=== PATIENT | male | born 1950 | race Caucasian/White ===

== ENCOUNTER 2018-06-22 06:56 | Day surgery (SDC) | payer MEDICARE ==
[2018-06-20 15:39] VITALS: BMI 27.1
[2018-06-22 07:37] VITALS: RESP 18; TEMP 97.3
[2018-06-22] MEDS ORDERED: LIDOCAINE 1% 20 ML VIAL (10MG/ML) FOR IV START INTRADERMA ONE (07:43)
[2018-06-22] MEDS ORDERED: LACTATED RINGERS 1,000 ML IV ONE (07:43)
[2018-06-22] MEDS ORDERED: PROPOFOL 10 MG/ML 20 ML VIAL IV ONE (08:26)
[2018-06-22] MEDS ORDERED: LIDOCAINE 1% INJ 10MG/ML (20 ML MDV) ONE (08:26)
--- NOTE | 2018-06-22 08:54 | P.PCN ---
Date of Procedure: 06/22/18 Procedure(s) Performed: Procedure: Colonoscopy and polypectomy. Preoperative diagnosis: Screening for neoplasia, patient has history of polyps. Postoperative diagnosis: 2 small polyps snared but no large polyps or cancer. Preparation: HalfLytely prep. Sedation: Was provided by anesthesia. Brief clinical history: The patient is a 67-year-old male who is scheduled for this evaluation for screening for neoplasia. The patient has history of polyps and his last examination was in 2011. He has no abdominal complaints, bleeding or anemia. Procedure: With the patient on his left lateral decubitus position and after informed consent and adequate sedation, the perianal area was inspected and it did not show any fissures or fistulas. There were no masses felt on digital rectal examination. The Olympus CFQ 160L video colonoscope was then inserted in the rectum in the usual fashion and advanced to the cecum. The preparation was less than ideal, as there was some thick fecal secretions and fecal debris that I spent some time trying to clean and suction. There were 2 small polyps, one in the proximal right colon and one in the descending colon which I snared but there were no large polyps or cancer. The right colon polyp was not recovered by suction. I did not see any obvious diverticular disease. I retroflexed the endoscope in the rectum before the endoscope was withdrawn. The patient tolerated the procedure well. Plan: The patient was reassured. In light of his history and less than ideal preparation today and the finding of small polyps, I recommended repeat exam in 3 years before going back to a 5-year schedule. He will follow up with you as planned.
[2018-06-22 09:06] VITALS: BP 117/74; PULSE 64
== END 2018-06-22 09:30 | disposition home or self-care (01) ==
LOC: ORWHC2ENDO 06:56
DX: Z12.11 Encounter for screening for malignant neoplasm of colon (principal); D12.4 Benign neoplasm of descending colon; E78.5 Hyperlipidemia, unspecified; Z86.010 Personal history of colon polyps; Z79.899 Other long term (current) drug therapy
CPT/HCPCS: 88305; 45385; J2001; J2704

== ENCOUNTER → 2019-01-26 | Outpatient (CLI) | payer MEDICARE ==
--- NOTE | 2019-01-28 15:22 | MR ---
EXAMINATION TYPE: MR shoulder RT wo con DATE OF EXAM: 01/26/2019 COMPARISON: Outside shoulder x-rays dated 12/08/2018 HISTORY: Pain in right shoulder. Prior rotator cuff repair. TECHNIQUE: Multiplanar, multisequence imaging of the right shoulder is performed without contrast. FINDINGS: Exam is limited due to patient motion. The patient was reminded multiple times. Moving farfan alban the patient has a history of claustrophobia Rotator Cuff: There is evidence of prior rotator cuff surgery with surgical density creating suscepti bility artifact overlying the acromion. The supraspinatus demonstrates a 2 mm bursal surface tear of the posterior insertional fibers and bur eloy surface fiber fraying as well as mild tendinopathy demonstrated as increased insertional fiber si gnal. There is an articular surface tear of the infraspinatus measuring 11.5 x 6 mm. There is mild tendinop athy demonstrated as increased tendinous signal distally. The teres minor is of unremarkable signal. The subscapularis appears intact and is unremarkable. Acromioclavicular Joint: There is mild acromioclavicular arthropathy with a small downward projecting osteophyte of the distal clavicle mildly impressing upon the supraspinatus without signal alteration of the supraspinatus. Glenohumeral Joint: Mild joint space narrowing Labrum: The labrum appears grossly intact given limitation of non-arthrogram study. However there is global labral degeneration. Biceps Tendon: The long head of biceps is in normal location within bicipital groove. What appears to be a split tear of the extra-articular portion of the biceps tendon and intra-articular portion are likely artifact given the extensive patient motion. Minimal increased signal of the intra-articular p ortion of the long head of the biceps relates to mild interarticular portion tendinosis. Bone marrow signal: Small subchondral cyst is seen of the humeral head. Other: Small amount of fluid is seen in the subcoracoid bursa that appears loculated and may represen t bursitis clinically. IMPRESSION: Exam is limited by patient motion as the patient states he is claustrophobic. Repeat imag ing was performed although unsuccessful in improving patient motion artifact. 1. Partial-thickness articular surface tear of the distal infraspinatus measuring 11.5 x 6 mm superim posed upon mild tendinopathy. 2. Mild supraspinatus insertional fiber tendinopathy with bursal surface fiber fraying and 2 mm bursa l surface tear. 3. There is appearance of long head of the biceps split tear involving the intra-articular and extra articular portions is very likely attributable to motion artifact. Correlate with any clinical sympto ms localize the biceps tendon. 4. Mild interarticular portion lung on the biceps tendinosis. 5. Small amount of loculated fluid in the subcoracoid bursa may relate to bursitis.
== END | disposition home or self-care (01) ==
LOC: RADMRIMAIN 15:31
PROVIDERS: ATTEND Orthopaedic Surgery
DX: S46.011A Strain of muscle(s) and tendon(s) of the rotator cuff of right shoulder, initial encounter (principal); M75.21 Bicipital tendinitis, right shoulder

== ENCOUNTER → 2020-05-26 | Outpatient (CLI) | payer MEDICARE ==
--- NOTE | 2020-05-26 12:48 | ECHOS ---
STRESS ECHOCARDIOGRAM LUMASON: - Vial INDICATIONS: Abnormal ECG, Pre-op. MEDICATIONS: Simvestatin, Ultram, Venlafaxnine, Hydrochloride, Multivitamin BASELINE HEART RATE: 82 BASELINE BLOOD PRESSURE: 106/56 MAXIMUM HEART RATE: 134 MAXIMUM BLOOD PRESSURE: 147/80 85% MPHR: 129 100% MPHR: 132 METS: 10.1 MAXIMUM STAGE REACHED: 3 TOTAL EXERCISE TIME: 9:00 CLINICAL INFORMATION: Baseline rhythm is a sinus mechanism, right bundle branch block. Rare PVCs. Baseline blood pressure 106/56 mmHg. Patient exercised on Eric protocol for 9 minutes reaching peak rate of 134 beats per minute which is equal to 88% of maximum predicted heart rate. Peak blood pressure 147/80 mmHg. Test was terminated due to fatigue. There were no chest pain. Electrocardiograph monitoring revealed occasional PVCs. FINDINGS: Left ventricular cavity appears to be normal. Rest of the images revealed a hypokinesis of the inferoseptal wall at peak exercise, there was no new segmental wall motion abnormality. CONCLUSION: 1. Good exercise tolerance with nondiagnostic electrocardiograph stress testing. Secondary to baseline EKG abnormality. 2. Abnormal stress echocardiogram with evidence of inferior wall hypokinesis without any change during the exercise suggestive of prior myocardial infarction. There was evidence of impairment in the systolic function. There was no clear evidence of stress-induced ischemia. MMODL / IJN: [id number] /
== END | disposition home or self-care (01) ==
LOC: RADNMMAIN 09:38
PROVIDERS: ATTEND Family Medicine
DX: Z01.810 Encounter for preprocedural cardiovascular examination (principal); R94.31 Abnormal electrocardiogram [ECG] [EKG]
CPT/HCPCS: 93351

== ENCOUNTER 2020-05-30 06:09 | Day surgery (SDC) | payer MEDICARE ==
[2020-05-27 09:29] VITALS: BMI 27.6
--- NOTE | 2020-05-29 10:34 | HP ---
HISTORY AND PHYSICAL CHIEF COMPLAINT: Right shoulder pain. HISTORY OF PRESENT ILLNESS: The patient is a 69-year-old, right-hand dominant, retired gentleman who presents with progressive right shoulder pain for the past several years. He recently hurt himself trying to remove a tree stump. He notes anterior and lateral pain, particular with overhead use and at night. He has tried previous therapy and injections along with medications with only partial temporary relief. He does have a history of a right rotator cuff repair in 1995. PAST MEDICAL HISTORY: Significant for asthma, depression, and arthritis. PAST SURGICAL HISTORY: Significant for right shoulder surgery in addition to cervical spine surgery. CURRENT MEDICATIONS: Simvastatin, Ultram. He denies drug allergies. FAMILY HISTORY: Significant for heart disease and cancer. SOCIAL HISTORY: Significant for previous tobacco use. 16 POINT REVIEW OF SYSTEMS: Otherwise reviewed and is noncontributory. PHYSICAL EXAMINATION: On examination, the patient is approximately 5 foot 1, 147 pounds of mesomorphic habitus. HEENT: Exam is nonfocal. NECK: Range of motion is limited, however. Spurling's is negative. On examination of his right shoulder, he does have some anterior deltoid atrophy. He has a healed distal clavicular scar. He is tender about the anterior subacromial space. He has moderate subacromial crepitus. Active range of motion forward elevation 145 degrees external rotation with arm at side 50 degrees, internal rotation to T12. Motor strength is 4+/5 for external rotation with the arm at side, 5-/5 for abduction. Impingement test, NEER test, and Speed test are positive. His distal neurovascular exam appears intact in the right upper extremity. X-rays of the right shoulder obtained in the office show some subacromial calcification with humeral head to acromial distance maintained. MRI report right shoulder shows evidence of a partial-thickness tear of the supraspinatus and infraspinatus along with significant bicipital tendinosis. IMPRESSION: Right shoulder impingement with partial thickness rotator cuff tear/bicipital tendinosis. RECOMMENDATIONS: I talked to the patient at length regarding his condition along with treatment options. He is having persistent/recurrent symptoms despite previous conservative measures. After thorough discussion, he opts to proceed with surgery. We will plan to proceed with right shoulder arthroscopy with probable subacromial decompression, possible rotator cuff debridement versus repair, possible biceps tenotomy and distal clavicular resection. We will likely perform that as an outpatient procedure. Risks and benefits were discussed at length in layman's terms. The patient underwent preoperative medical evaluation by Dr. Jaquez. MMSHEYLAL / IJN: [id number] /
[~2020-05-30 06:09] MED LIST: DEXAMETHASONE SOD PHOSPHATE 10 MG/ML 1 ML VIAL IV ONE; HYDROmorphone 0.5 MG/0.5 ML SYRINGE IVP PRN; LACTATED RINGERS 1,000 ML IV SCH; LIDOCAINE 1% (10MG/ML) FOR IV START INTRADERMA PRN; MIDAZOLAM 2 MG/2 ML VIAL IV PRN; ONDANSETRON 4 MG/2 ML VIAL IVP ONE; fentaNYL (PF) 50 MCG/ML 2 ML AMP IVP PRN
[2020-05-30] MEDS ORDERED: LACTATED RINGERS 1,000 ML IV ONE ×2 (06:20→08:40)
[2020-05-30] MEDS ORDERED: ONDANSETRON 4 MG/2 ML VIAL ONE (06:44)
[2020-05-30] MEDS ORDERED: MIDAZOLAM 2 MG/2 ML VIAL IVP ONE (07:29)
[2020-05-30] MEDS ORDERED: fentaNYL (PF) 50 MCG/ML 2 ML AMP IVP ONE (07:29)
[2020-05-30] MEDS ORDERED: ePHEDrine SULFATE/0.9% NACL/PF 50 MG/5 ML SYRINGE IV ONE (07:55)
[2020-05-30] MEDS ORDERED: DEXAMETHASONE SOD PHOSPHATE 4 MG/ML 1 ML VIAL ONE (07:55)
[2020-05-30] MEDS ORDERED: PHENYLEPHRINE-0.9% NACL SYG 1 MG/10 ML SYRINGE ONE (07:55)
[2020-05-30] MEDS ORDERED: MIDAZOLAM 2 MG/2 ML VIAL ONE (07:55)
[2020-05-30] MEDS ORDERED: PROPOFOL 10 MG/ML 20 ML VIAL IV ONE (07:55)
[2020-05-30] MEDS ORDERED: SUCCINYLCHOLINE CHLORIDE 100 MG/5 ML SYR IV ONE (07:55)
[2020-05-30] MEDS ORDERED: fentaNYL (PF) 50 MCG/ML 2 ML AMP ONE (07:55)
[2020-05-30] MEDS ORDERED: LIDOCAINE 1% INJ 10MG/ML (20 ML MDV) ONE (07:55)
[2020-05-30] MEDS ORDERED: ROPIVACAINE 5 MG/ML 30 ML VIAL ONE (07:55)
[2020-05-30] MEDS ORDERED: EPINEPHrine (PF) 1 ML in SODIUM CHLORIDE 0.9% IRRIGATIO 3,000 ML IRRIGATION ONE ×8 (08:35)
[2020-05-30 09:38] VITALS: TEMP 96.8
--- NOTE | 2020-05-30 09:38 | P.OP ---
Date of Procedure: 05/30/20 Preoperative Diagnosis: right shoulder impingement/partial thickness rotator cuff tear/bicipital tendinosis/acromioclavicular joint arthritis Postoperative Diagnosis: same Procedure(s) Performed: Right shoulder arthroscopic subacromial decompression/distal clavicular resection/biceps tenotomy/rotator cuff repair Implants: Arthrex 5.5 mm swivel lock anchor 1 [facility] Surgeon: Ulysses Carlos Estimated Blood Loss (ml): 10 Pathology: none sent Condition: stable Disposition: PACU Indications for Procedure: The patient is a 69-year-old [id number] gentleman who presents with persistent/progressive right shoulder pain despite extensive conservative measures. A discussion of the risks and benefits of operative intervention versus continued conservative measures was made with the patient To proceed with surgery. Operative risks to include infection, neurovascular injury, development of blood clots, possible incomplete resolution of symptoms, possible postoperative stiffness and need for subsequent procedures was discussed. Informed consent was obtained. Operative Findings: As below Description of Procedure: The patient was brought to the operating room, and after induction of general anesthesia was placed in a beachchair position. A preoperative interscalene block was placed for postoperative analgesia. I examined the right shoulder. There was no gross block to passive motion or gross glenohumeral instability. The right upper extremity was prepped and draped in normal fashion. The bony outlines the acromion, distal clavicle, and coracoid process were outlined with a skin marker. The glenohumeral joint was inflated with 50 mL of saline utilizing a spinal needle from posterior approach. A posterior portal was made through a 5 mm skin incision 1 cm medial and inferior to the posterior lateral border time. A blunt trocar was used to easily into the joint. Diagnostic arthroscopy was performed. An anterior portal was made just lateral to the co racoid process entering the joint above the subscapularis tendon. The subscapularis tendon appeared to be intact. Anterior labrum was intact. The inferior recess was inspected. The posterior labrum was intact. There was a high-grade partial-thickness tear of the long head of the biceps involving interarticular portion. It was elected to proceed with release at this point. This was released from the superior labrum with electrocautery and was allowed to retract to the bicipital groove. On inspection the rotator cuff, a high- grade partial-thickness tear involving the anterior aspect the supraspinatus was noted. This was completed with a motorized shaver. A lateral portal was made 2 centimeters inferior to the anterior lateral border of the acromion. The soft tissue on the undersurface of the acromion was debrided with a motorized shaver and electrocautery clearly defining the anterior medial and lateral borders as well as the distal clavicle. An anterior inferior acromioplasty was performed with a motorized abi starting anterolateral, then extending this posteriorly, then extending this medially. I converted to a flat acromion and this was verified in the posterior and lateral viewing portals. There was significant degenerative changes involving the acromioclavicular joint with impingement and subacromial space. The distal 4 mm of the clavicle was resected with a motorized bur. The greater tuberosity was lightly decorticating with a shaver down to a bleeding bony surface. a #2 fiber tape was passed through the rotator cuff with a scorpion suture passer. A 5.5 mm swivel lock anchor was placed laterally with good purchase. . Final arthroscopic view showed adequate compression at the footprint. The arthroscope was then removed. The portals were closed with simple 3-0 nylon sutures. A sterile dressing was applied in addition ta slingatient was then awoken from general anesthesia and transferred to recovery room in good condition. Blood loss was estimated at 10 mL. No complications were incurred. Sponge and needle counts were correct in the case.
[2020-05-30 10:23] VITALS: RESP 16
[2020-05-30 10:51] VITALS: BP 120/74; PULSE 99
--- NOTE | 2020-05-30 11:10 | P.ANPRN ---
Procedure Note - Anesthesia - Nerve Block Performed Right Interscalene Time Out Performed: Yes (:) Date of Procedure: 05/30/20 Procedure Start Time: Procedure Stop Time: Location of Patient: PreOp Indication: Acute Post-Operative Pain, Requested by Surgeon (Dr Carlos) Sedation Type: Sedate with meaningful contact maintained Preparation: Sterile Prep Position: Supine Catheter: None Needle Types: Pajunk (22g) Ultrasound used to visualize needle placement: Yes Ultrasound used to observe medication spread: Yes Injectate: 0.5% Ropivacaine (see comment for volume) (20cc + Decadron 4mg) Blood Aspirated: No Pain Paresthesia on Injection Noted: No Resistance on Injection: Normal Image Stored and Saved: Yes Events: Uneventful and Well Tolerated
== END 2020-05-30 11:31 | disposition home or self-care (01) ==
LOC: OR 06:09
PROVIDERS: ATTEND Orthopaedic Surgery
DX: M75.111 Incomplete rotator cuff tear or rupture of right shoulder, not specified as traumatic (principal); M75.41 Impingement syndrome of right shoulder; M75.21 Bicipital tendinitis, right shoulder; M19.011 Primary osteoarthritis, right shoulder; M25.811 Other specified joint disorders, right shoulder; J45.909 Unspecified asthma, uncomplicated; F32.9 Major depressive disorder, single episode, unspecified; E78.5 Hyperlipidemia, unspecified; Z79.891 Long term (current) use of opiate analgesic; Z79.899 Other long term (current) drug therapy; Z87.891 Personal history of nicotine dependence; Z98.1 Arthrodesis status; Z80.9 Family history of malignant neoplasm, unspecified; Z98.890 Other specified postprocedural states; Z82.49 Family history of ischemic heart disease and other diseases of the circulatory system
CPT/HCPCS: 64415; 76942; 29824; 29826; 29827; C1713 ×2; J2250; J1100 ×2; J0690; J2405; J0171; J2001; J3010; J2795; J2370; J0330; J2704

== ENCOUNTER 2021-05-27 08:00 | Day surgery (SDC) | payer MEDICARE ==
[2021-05-22 11:56] VITALS: BMI 27.9
[~2021-05-27 08:00] MED LIST changes: -DEXAMETHASONE SOD PHOSPHATE 10 MG/ML 1 ML VIAL IV ONE; -HYDROmorphone 0.5 MG/0.5 ML SYRINGE IVP PRN; -LIDOCAINE 1% (10MG/ML) FOR IV START INTRADERMA PRN; -MIDAZOLAM 2 MG/2 ML VIAL IV PRN; -ONDANSETRON 4 MG/2 ML VIAL IVP ONE; -fentaNYL (PF) 50 MCG/ML 2 ML AMP IVP PRN
[2021-05-27 08:40] VITALS: TEMP 98.2
[2021-05-27] MEDS ORDERED: PROPOFOL 10 MG/ML 20 ML VIAL IV ONE (09:30)
[2021-05-27] MEDS ORDERED: LIDOCAINE 1% INJ 10MG/ML (20 ML MDV) ONE (09:30)
--- NOTE | 2021-05-27 09:52 | P.PCN ---
Date of Procedure: 05/27/21 Procedure(s) Performed: BRIEF HISTORY: Patient is a 70-year-old pleasant male scheduled for an elective colonoscopy as a part of evaluation of prior history of colon polyps. Last colonoscopy was 3 years ago. PROCEDURE PERFORMED: Colonoscopy snare polypectomy. PREOPERATIVE DIAGNOSIS: History of colon polyps. IV sedation per Anesthesia. PROCEDURE: After informed consent was obtained, the patient, was brought into the endoscopy unit. IV sedation was administered by Anesthesia under continuous monitoring. Digital rectal examination was normal. Initially the Olympus CF-160 flexible video colonoscope was then inserted in the rectum, gradually advanced into the cecum without any difficulty. Careful examination was performed as the scope was gradually being withdrawn. Ileocecal valve and the appendiceal orifice were visualized and appeared normal. Prep was excellent. The base of cecum there was a 3 mm polyp that was removed by snare polypectomy. In the ascending colon there was a 5 mm polyps snare polypectomy. Mucosa of the cecum, ascending colon, transverse colon, descending colon, sigmoid colon, appeared normal. The rectum there was a 2 mm and 5 mm polyps removed by snare polypectomy. Retroflexion was performed in the rectum and a 2 internal hemorrhoids were seen. The patient tolerated the procedure well. IMPRESSION: 3 Millimeters cecal polyp status post polypectomy 5 mm ascending colon polyp status post polypectomy 2 mm and 5 mm rectal polyp status post polypectomy Grade 2 internal hemorrhoids RECOMMENDATIONS: Findings of this examination were discussed with the patient less his family. He was advised to follow with the biopsy results. If the biopsy reveals adenoma he can have a repeat colonoscopy in 3-5 years.
[2021-05-27 09:59] VITALS: RESP 16
[2021-05-27 10:25] VITALS: BP 113/75; PULSE 89
== END 2021-05-27 11:09 | disposition home or self-care (01) ==
LOC: ORWHC2ENDO 08:00
PROVIDERS: ATTEND Internal Medicine Gastroenterology
DX: D12.2 Benign neoplasm of ascending colon (principal); Z86.010 Personal history of colon polyps; D12.0 Benign neoplasm of cecum; K64.1 Second degree hemorrhoids; D12.8 Benign neoplasm of rectum; E78.5 Hyperlipidemia, unspecified; Z79.899 Other long term (current) drug therapy
CPT/HCPCS: 88305; 45385; J2001; J2704

== ENCOUNTER 2022-10-04 12:06 | Inpatient (IN) | payer MEDICARE ==
--- NOTE | 2022-10-04 12:33 | ED ---
General Adult HPI - General Source: patient, RN notes reviewed Mode of arrival: ambulatory Limitations: no limitations <Shiva Mensah - Last Filed: 10/04/22 12:32> <Devon Saravia - Last Filed: 10/04/22 15:14> - General Stated complaint: sob Time Seen by Provider: 10/04/22 12:32 - History of Present Illness Initial comments: This a 72-year-old male presents emergency Department chief complaint of shortness of breath. Patient states been having increasing shortness with the last 2 weeks. Patient states this initially started with upper respiratory infection along with other family members having some her symptoms. He states that he cannot lay flat at nighttime he states that his exertional shortness of breath and tightness in his chest. Patient states that he's had no prior lung disease. Patient denies any significant leg swelling but states he gets pain, cramping in his upper legs when he walks. Patient denies prior cardiac disease does not is on simvastatin and has been on this for long period of time. (Shiva Mensah) This is a 72-year-old male who presents emergency Department complaining that he has had increasing shortness of breath the last 3 weeks he assumed since the cold that the rest of the family got but the symptoms are not resolving. Patient states he does have occasional chest pain but not that often. Patient denies any recent fever or chills. Patient states she's had no palpitations. Patient states he hasn't noticed any swelling in his legs or feet. Patient denies any abdominal pain patient's nausea vomiting. Patient states she's had no prior heart disease. Patient states she does have high cholesterol smokes marijuana but does not smoke cigarettes. (Devon Saravia) - Related Data Home Medications Medication Instructions Recorded Confirmed Simvastatin [Zocor] 20 mg PO W/SUPPER 06/20/18 05/27/21 Venlafaxine HCl [Effexor XR] 150 mg PO HS 05/27/20 05/27/21 Acetaminophen [Tylenol Arthritis] 650 mg PO DIRECTED PRN 05/22/21 05/27/21 Multivit-Min/Folic/Vit K/Lycop 1 each PO DAILY 05/22/21 05/27/21 [Men's Multivitamin Tablet] traMADol HCl [Ultram] 50 mg PO Q6HR PRN 05/22/21 05/27/21 Allergies Allergy/AdvReac Type Severity Reaction Status Date / Time No Known Allergies Allergy Verified 10/04/22 12:44 Review of Systems ROS Other: All systems not noted in ROS Statement are negative. <Shiva Mensah - Last Filed: 10/04/22 12:32> ROS Other: All systems not noted in ROS Statement are negative. <Devon Saravia - Last Filed: 10/04/22 15:14> ROS Statement: Those systems with pertinent positive or pertinent negative responses have been documented in the HPI. Past Medical History Past Medical History: Hyperlipidemia, Osteoarthritis (OA) Additional Past Medical History / Comment(s): hx colon polyps, Arthritis and back & neck pain. History of Any Multi-Drug Resistant Organisms: MRSA Date of last positivie culture/infection: 2005 MDRO Source:: CERVICAL INCISION Past Surgical History: Back Surgery Additional Past Surgical History / Comment(s): HX OF CERVICAL FUSION X2, repair ruptured ear drum, colonoscopy Past Anesthesia/Blood Transfusion Reactions: No Reported Reaction Past Psychological History: Anxiety, Depression Smoking Status: Former smoker Past Alcohol Use History: None Reported Additional Past Alcohol Use History / Comment(s): quit smoking 1988, hx-2 cigarettes/day Past Drug Use History: Marijuana Additional Drug Use History / Comment(s): STATES USES MEDICAL MARIJUANA DAILY, INSTRUCTED TO HOLD 24HRS PRIOR TO PROCEDURE - Past Family History Mother Family Medical History: No Reported History Father Family Medical History: Cancer, Congestive Heart Failure (CHF), Myocardial Infarction ([place]) Additional Family Medical History / Comment(s): leukemia Brother(s) Family Medical History: Cancer, Myocardial Infarction ([place]) Additional Family Medical History / Comment(s): nose cancer. <Shiva Mensah - Last Filed: 10/04/22 12:32> General Exam <Devon Saravia - Last Filed: 10/04/22 15:14> - General Exam Comments Initial Comments: GENERAL: Patient is well-developed and well-nourished. Patient is nontoxic and well- hydrated and is in mild distress. ENT: Neck is soft and supple. No significant lymphadenopathy is noted. Oropharynx is clear. Moist mucous membranes. Neck has full range of motion without eliciting any pain. EYES: The sclera were anicteric and conjunctiva were pink and moist. Extraocular movements were intact and pupils were equal round and reactive to light. Eyelids were unremarkable. PULMONARY: Patient is crackles bilateral bases CARDIOVASCULAR: There is a regular rate and rhythm without any murmurs gallops or rubs. ABDOMEN: Soft and nontender with normal bowel sounds. SKIN: Skin is clear with no lesions or rashes and otherwise unremarkable. NEUROLOGIC: Patient is alert and oriented x3. Cranial nerves II through XII are grossly intact. Motor and sensory are also intact. Normal speech, volume and content. Symmetrical smile. MUSCULOSKELETAL: Normal extremities with adequate strength and full range of motion. Scant edema LYMPHATICS: No significant lymphadenopathy is noted PSYCHIATRIC: Normal psychiatric evaluation. (Devon Saravia) Course Vital Signs 10/04/22 12:43 Temperature 98.4 F Pulse Rate 100 Respiratory 22 Rate Blood Pressure 128/87 O2 Sat by Pulse 94 L Oximetry Medical Decision Making - Lab Data Result diagrams: 10/04/22 12:46 10/04/22 12:46 <Devon Saravia - Last Filed: 10/04/22 15:14> - Medical Decision Making EKG was interpreted by me. EKG shows sinus tachycardia at 101 bpm MS interval 120 QRS is on a 52 QT interval 38 QTC is 446. Patient's EKG shows right bundle branch block. There is no ST segment elevation. Was pt. sent in by a medical professional or institution? @ -None Did you speak to anyone other than the patient for history? @ - gave some patient's current history that he had forgotten Did you review nursing and triage notes? @ -Agree with the triage notes and nursing notes Were old charts reviewed? @ -I reviewed previous EKGs on this patient compared to the current one. Differential Diagnosis? @ -Differential Dyspnea: Coronary syndrome, arrhythmia, tamponade, asthma, COPD, pulmonary embolism, pneumonia, pneumothorax, pulmonary effusion, anaphylaxis, diabetic ketoacidosis, flailed chest, pulmonary contusion, diaphragmatic rupture, anemia, neuromuscular, this is not meant to be an all-inclusive list. EKG interpreted by me (3pts min.)? @ -As above X-rays interpreted by me (1pt min.)? @ -Chest x-ray was interpreted by myself. X-ray shows pulmonary edema and cardiomegaly and pleural effusions. CT interpreted by me (1pt min.)? @ -None U/S interpreted by me (1pt. min.)? @ -None What testing was considered but not performed? (CT, X-rays, U/S, labs)? Why? @ -None What meds were considered but not given? Why? @ -None Did you discuss the management of the patient with other professionals? @ -I spoke with some physicians agreed to admit the patient admitted the sofia edmonds wrote admitting orders. I consult cardiology Did you reconcile home meds? @ -None Was smoking cessation discussed for >3mins.? @ -None Was critical care preformed (if so, how long)? @ -None Were there social determinants of health that impacted care today? How? (Homelessness, low income, unemployed, alcoholism, drug addiction, transportation, low edu. Level, literacy, decrease access to med. care, care home, rehab)? @ -None Was there de-escalation of care discussed even if they declined? (Discuss DNR or withdrawal of care, Hospice)? @ -No What co-morbidities impacted this encounter? (DM, HTN, Smoking, COPD, CAD, Cancer, CVA, Hep., AIDS, mental health diagnosis, sleep apnea, morbid obesity)? @ -High cholesterol worsens the patient's coronary artery disease potentially Was patient admitted / discharged? @ -Patient will be admitted. Patient came in short of breath patient states one was mildly elevated BNP was elevated chest x-ray showed pulmonary edema. Patient was given aspirin and heparin Nitropaste as well as Lasix. I spoke with some physicians and he agreed to admit the patient admitted the patient wrote admitting orders I consult cardiology Undiagnosed new problem with uncertain prognosis? @ -None Drug Therapy requiring intensive monitoring for toxicity (Heparin, Nitro, Insulin, Cardizem)? @ -Patient was placed on heparin and will be monitored. Were any procedures done? @ -No Diagnosis/symptom? @ -Acute pulmonary edema, elevated troponin Acute, or Chronic, or Acute on Chronic? @ -Acute Uncomplicated (without systemic symptoms) or Complicated (systemic symptoms)? @ -Complicated Side effects of treatment? @ -None Exacerbation, Progression, or Severe Exacerbation] @ -Severe exacerbation Poses a threat to life or bodily function? @ -Pulmonary edema is causing dyspnea which and affect could cause and organ dysfunction Diagnosis/symptom? @ -Elevated troponin Acute, or Chronic, or Acute on Chronic? @ -Acute Uncomplicated (without systemic symptoms) or Complicated (systemic symptoms)? @ -Complicated Side effects of treatment? @ -None Exacerbation, Progression, or Severe Exacerbation] @ -None Poses a threat to life or bodily function? @ -Yes this could represent the patient hasn't had a heart attack in the distant past or in the recent past (Devon Saravia) - Lab Data Lab Results 10/04/22 10/04/22 10/04/22 Range/Units 12:46 12:46 12:46 WBC 5.0 (3.8-10.6) k/uL RBC 3.22 L (4.30-5.90) m/uL Hgb 9.8 L (13.0-17.5) gm/dL Hct 29.2 L (39.0-53.0) % MCV 90.7 (80.0-100.0) fL MCH 30.3 (25.0-35.0) pg MCHC 33.4 (31.0-37.0) g/dL RDW 13.4 (11.5-15.5) % Plt Count 130 L (150-450) k/uL MPV 9.2 Neutrophils % 67 % Lymphocytes % 22 % Monocytes % 3 % Eosinophils % 6 % Basophils % 0 % Neutrophils # 3.4 (1.3-7.7) k/uL Lymphocytes # 1.1 (1.0-4.8) k/uL Monocytes # 0.2 (0-1.0) k/uL Eosinophils # 0.3 (0-0.7) k/uL Basophils # 0.0 (0-0.2) k/uL Hypochromasia Slight PT 10.9 (9.0-12.0) sec INR 1.0 (<1.2) APTT 22.0 (22.0-30.0) sec Sodium 142 (137-145) mmol/L Potassium 4.0 (3.5-5.1) mmol/L Chloride 109 H (98-107) mmol/L Carbon Dioxide 26 (22-30) mmol/L Anion Gap 7 mmol/L BUN 18 (9-20) mg/dL Creatinine 1.06 (0.66-1.25) mg/dL Est GFR (CKD-EPI)AfAm 82 (>60 ml/min/1.73 sqM) Est GFR (CKD-EPI)NonAf 71 (>60 ml/min/1.73 sqM) Glucose 97 (74-99) mg/dL Calcium 9.3 (8.4-10.2) mg/dL Magnesium 1.8 (1.6-2.3) mg/dL Total Bilirubin 0.6 (0.2-1.3) mg/dL AST 39 (17-59) U/L ALT 38 (4-49) U/L Alkaline Phosphatase 94 (38-126) U/L Creatine Kinase 202 H (55-170) U/L Troponin I (0.000-0.034) ng/mL NT-Pro-B Natriuret Pep pg/mL Total Protein 6.9 (6.3-8.2) g/dL Albumin 4.0 (3.5-5.0) g/dL Influenza Type A (PCR) (Not Detectd) Influenza Type B (PCR) (Not Detectd) RSV (PCR) (Not Detectd) SARS-CoV-2 (PCR) (Not Detectd) 10/04/22 10/04/22 10/04/22 Range/Units 12:46 12:46 12:46 WBC (3.8-10.6) k/uL RBC (4.30-5.90) m/uL Hgb (13.0-17.5) gm/dL Hct (39.0-53.0) % MCV (80.0-100.0) fL MCH (25.0-35.0) pg MCHC (31.0-37.0) g/dL RDW (11.5-15.5) % Plt Count (150-450) k/uL MPV Neutrophils % % Lymphocytes % % Monocytes % % Eosinophils % % Basophils % % Neutrophils # (1.3-7.7) k/uL Lymphocytes # (1.0-4.8) k/uL Monocytes # (0-1.0) k/uL Eosinophils # (0-0.7) k/uL Basophils # (0-0.2) k/uL Hypochromasia PT (9.0-12.0) sec INR (<1.2) APTT (22.0-30.0) sec Sodium (137-145) mmol/L Potassium (3.5-5.1) mmol/L Chloride (98-107) mmol/L Carbon Dioxide (22-30) mmol/L Anion Gap mmol/L BUN (9-20) mg/dL Creatinine (0.66-1.25) mg/dL Est GFR (CKD-EPI)AfAm (>60 ml/min/1.73 sqM) Est GFR (CKD-EPI)NonAf (>60 ml/min/1.73 sqM) Glucose (74-99) mg/dL Calcium (8.4-10.2) mg/dL Magnesium (1.6-2.3) mg/dL Total Bilirubin (0.2-1.3) mg/dL AST (17-59) U/L ALT (4-49) U/L Alkaline Phosphatase (38-126) U/L Creatine Kinase (55-170) U/L Troponin I 0.041 H* (0.000-0.034) ng/mL NT-Pro-B Natriuret Pep 6560 pg/mL Total Protein (6.3-8.2) g/dL Albumin (3.5-5.0) g/dL Influenza Type A (PCR) Not Detected (Not Detectd) Influenza Type B (PCR) Not Detected (Not Detectd) RSV (PCR) Not Detected (Not Detectd) SARS-CoV-2 (PCR) Not Detected (Not Detectd) Critical Care Time Critical Care Time: Yes Total Critical Care Time: 35 <Devon Saravia - Last Filed: 10/04/22 15:14> Disposition <Shiva Mensah - Last Filed: 10/04/22 12:32> Time of Disposition: 15:14 <Devon Saravia - Last Filed: 10/04/22 15:14> Clinical Impression: Acute pulmonary edema, Elevated troponin Disposition: ADMITTED IP TO THIS HOSP Referrals: Ivon Carlton MD [Primary Care Provider] - 1-2 days
[2022-10-04 13:29] LABS: Basophils % (A) 0 %; Eosinophils # (A) 0.3 k/uL (0-0.7); Eosinophils % (A) 6 %; HCT 29.2 % (39.0-53.0); HGB 9.8 gm/dL (13.0-17.5); Hypochromasia Slight; Lymphocytes # (A) 1.1 k/uL (1.0-4.8); Lymphocytes % (A) 22 %; MCH 30.3 pg (25.0-35.0); MCHC 33.4 g/dL (31.0-37.0); MCV 90.7 fL (80.0-100.0); Mean Platelet Volume 9.2; Monocytes # (A) 0.2 k/uL (0-1.0); Monocytes % (A) 3 %; Neutrophils # (A) 3.4 k/uL (1.3-7.7); Neutrophils % (A) 67 %; Platelet Count 130 k/uL (150-450); RBC 3.22 m/uL (4.30-5.90); RDW 13.4 % (11.5-15.5)
[2022-10-04 13:40] LABS: Calcium 9.3 mg/dL (8.4-10.2); Magnesium 1.8 mg/dL (1.6-2.3); Total Bilirubin 0.6 mg/dL (0.2-1.3); Total Protein 6.9 g/dL (6.3-8.2)
[2022-10-04 13:46] LABS: Prothrombin Time 10.9 sec (9.0-12.0)
--- NOTE | 2022-10-04 13:47 | XR ---
EXAMINATION TYPE: XR chest 2V DATE OF EXAM: 10/04/2022 COMPARISON: 05/22/2020 HISTORY: 72-year-old male shortness of breath, difficulty breathing TECHNIQUE: PA and lateral views FINDINGS: Heart mildly enlarged. Diffuse interstitial and vascular density. There are trace bilateral pleural e ffusions and mild patchy bibasilar opacities. IMPRESSION: CHF with pulmonary vascular congestion. Trace pleural effusions with adjacent atelectasis and/or cons olidation.
[2022-10-04] MEDS ORDERED: ASPIRIN 81 MG PO STA (14:50)
[2022-10-04] MEDS ORDERED: FUROSEMIDE 10 MG/ML 4 ML VIAL IV STA (14:50)
[2022-10-04] MEDS ORDERED: NITROGLYCERIN OINT 1 INCH/GM PACKET TOPICAL STA (14:50)
[2022-10-04] MEDS ORDERED: HEPARIN SODIUM 1,000 UN/ML (10ML VL) IV ONE (15:17)
[2022-10-04] MEDS: HEPARIN SOD,PORK IN 0.45% NACL 25,000 UNIT in 0.45% NACL 1 250ML.BAG IV SCH (15:29)
--- NOTE | 2022-10-04 15:34 | P.HPIM ---
History of Present Illness H&P Date: 10/04/22 Chief Complaint: sob 72-year-old male presents emergency Department chief complaint of shortness of breath over the last 2 weeks. Other family members had similar symptoms. He has been having progressively worsening exertional shortness of breath, cannot walk long distances without getting short winded. Denied exertional chest pain. However has been having a cough productive of yellow phlegm with associated pleuritic chest pain. He states that he cannot lay flat at nighttime due to difficulty in breathing. Patient states that he's had no prior lung or heart disease. He is usually very active. No leg swelling. Patient denies any recent fever or chills. Patient states she's had no palpitations or dizziness. Patient denies any abdominal pain patient's nausea vomiting. Of note he smokes marijuana regularly but no cigarettes. Evaluation in the emergency department revealed normal vital signs. Labs were significant for hemoglobin 9.8, troponin 0.041, BNP 6560. Specific labs okay. Chest x-ray showed congestive heart failure changes with pulmonary vascular congestion and tiny pleural effusion. Patient was admitted for further evaluation and management. Review of Systems Complete review of system performed, pertinent positives per HPI, otherwise negative Past Medical History Past Medical History: Hyperlipidemia, Osteoarthritis (OA) Additional Past Medical History / Comment(s): hx colon polyps, Arthritis and back & neck pain. History of Any Multi-Drug Resistant Organisms: MRSA Date of last positivie culture/infection: 2005 MDRO Source:: CERVICAL INCISION Past Surgical History: Back Surgery Additional Past Surgical History / Comment(s): HX OF CERVICAL FUSION X2, repair ruptured ear drum, colonoscopy Past Anesthesia/Blood Transfusion Reactions: No Reported Reaction Past Psychological History: Anxiety, Depression Smoking Status: Former smoker Past Alcohol Use History: None Reported Past Drug Use History: Marijuana - Past Family History Mother Family Medical History: No Reported History Father Family Medical History: Cancer, Congestive Heart Failure (CHF), Myocardial Infarction ([place]) Additional Family Medical History / Comment(s): leukemia Brother(s) Family Medical History: Cancer, Myocardial Infarction ([place]) Additional Family Medical History / Comment(s): nose cancer. Medications and Allergies Home Medications Medication Instructions Recorded Confirmed Type Simvastatin [Zocor] 20 mg PO W/SUPPER 06/20/18 05/27/21 History Venlafaxine HCl [Effexor XR] 150 mg PO HS 05/27/20 05/27/21 History Acetaminophen [Tylenol Arthritis] 650 mg PO DIRECTED PRN 05/22/21 05/27/21 History Multivit-Min/Folic/Vit K/Lycop 1 each PO DAILY 05/22/21 05/27/21 History [Men's Multivitamin Tablet] traMADol HCl [Ultram] 50 mg PO Q6HR PRN 05/22/21 05/27/21 History Allergies Allergy/AdvReac Type Severity Reaction Status Date / Time No Known Allergies Allergy Verified 10/04/22 12:44 Physical Exam Vitals: Vital Signs Temp Pulse Resp BP Pulse Ox 10/04/22 12:43 98.4 F 100 22 128/87 94 L Intake and Output 10/04/22 10/04/22 10/04/22 06:59 14:59 22:59 Other: Weight 67.132 kg Constitutional: No acute distress, conversant, pleasant Eyes:Anicteric sclerae, moist conjunctiva, no lid-lag, PERRLA, ENMT: Oropharynx clear, no erythema, exudates Neck: Supple, FROM, no masses, or JVD, No carotid bruits, No thyromegaly Lungs: Basilar crackles, Clear to percussion, Normal respiratory effort, no accessory muscle use Cardiovascular: Heart regular in rate and rhythm, No murmurs, gallops, or rubs, No peripheral edema Abdominal: Soft, Nontender, no guarding, rebound or rigidity, Normoactive bowel sounds, No hepatomegaly, No splenomegaly, No palpable mass Skin: Normal temperature, tone, texture, turgor, no induration, No subcutaneous nodules, No rash, lesions, No ulcers Extremities: No digital cyanosis, No clubbing, Pedal pulses intact and symmetrical, Radial pulses intact and symmetrical, No calf tenderness Psychiatric: Alert and oriented to person, place and time, appropriate affect, intact judgement Neuro: Muscles Strength 5/5 in all 4 extremities, Sensation to light touch grossly present throughout, Cranial nerves II-XII grossly intact, no focal sensory deficits Results CBC & Chem 7: 10/04/22 12:46 10/04/22 12:46 Labs: Abnormal Lab Results - Last 24 Hours (Table) 10/04/22 10/04/22 10/04/22 Range/Units 12:46 12:46 12:46 RBC 3.22 L (4.30-5.90) m/uL Hgb 9.8 L (13.0-17.5) gm/dL Hct 29.2 L (39.0-53.0) % Plt Count 130 L (150-450) k/uL Chloride 109 H (98-107) mmol/L Creatine Kinase 202 H (55-170) U/L Troponin I 0.041 H* (0.000-0.034) ng/mL Assessment and Plan Plan: Shortness of breath NSTEMI Monitor on telemetry Cycle troponins Consult cardiology Heparin drip Aspirin and beta blockers Lasix IV and monitor I's and O's and daily weights. Check echocardiogram Community-acquired pneumonia Check blood cultures Empiric antibiotics Hyperkalemia Continue statin Admit to inpatient, expected length of stay >2 midnights
[2022-10-04] MEDS ORDERED: ACETAMINOPHEN TAB 325 MG TAB PO PRN (15:35)
[2022-10-04] MEDS ORDERED: NALOXONE 0.4 MG/ML 1 ML VIAL IV PRN (15:35)
[2022-10-04] MEDS: ATORVASTATIN 10 MG TAB PO SCH (18:10)
[2022-10-05 08:15] LABS: Basophils # (A) 0.1 k/uL (0-0.2); Basophils % (A) 1 %; Eosinophils # (A) 0.5 k/uL (0-0.7); Eosinophils % (A) 5 %; HCT 34.4 % (39.0-53.0); HGB 11.6 gm/dL (13.0-17.5); Hypochromasia Slight; Lymphocytes # (A) 1.9 k/uL (1.0-4.8); Lymphocytes % (A) 19 %; MCH 30.4 pg (25.0-35.0); MCHC 33.9 g/dL (31.0-37.0); MCV 89.8 fL (80.0-100.0); Mean Platelet Volume 8.1; Monocytes # (A) 0.3 k/uL (0-1.0); Monocytes % (A) 3 %; Neutrophils # (A) 7.1 k/uL (1.3-7.7); Neutrophils % (A) 70 %; RBC 3.83 m/uL (4.30-5.90); RDW 13.8 % (11.5-15.5); WBC 10.2 k/uL (3.8-10.6)
[2022-10-05 08:17] LABS: Platelet Count 327 k/uL (150-450)
[2022-10-05 08:53] LABS: Albumin 3.7 g/dL (3.5-5.0); Calcium 8.8 mg/dL (8.4-10.2); Magnesium 1.8 mg/dL (1.6-2.3); Phosphorus 3.6 mg/dL (2.5-4.5); Potassium 3.6 mmol/L (3.5-5.1); Total Bilirubin 0.7 mg/dL (0.2-1.3); Total Protein 6.3 g/dL (6.3-8.2)
[2022-10-05] MEDS ORDERED: FUROSEMIDE 10 MG/ML 2 ML VIAL IV SCH (09:00)
[2022-10-05] MEDS: LOSARTAN 25 MG TAB PO SCH (12:38)
[2022-10-05] MEDS: carvediloL 3.125 MG TAB PO SCH ×2 (12:38→16:36)
[2022-10-05] MEDS ORDERED: HEPARIN SODIUM 1,000 UN/ML (10ML VL) IVP ONE (14:13)
[2022-10-05] MEDS: HEPARIN SOD,PORK IN 0.45% NACL 25,000 UNIT in 0.45% NACL 1 250ML.BAG IV SCH ×2 (14:20→19:30)
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
--- NOTE | 2022-10-05 15:16 | P.PN ---
Subjective Progress Note Date: 10/05/22 Patient seen and examined at bedside. Shortness of breath and chest pain have improved. Awaiting further recommendations from cardiology at this time. Objective - Vital Signs Vital signs: Vital Signs Temp 97.4 F L 10/05/22 08:00 Pulse 116 H 10/05/22 12:00 Resp 16 10/05/22 12:00 BP 115/67 10/05/22 12:00 Pulse Ox 97 10/05/22 12:00 FiO2 Intake & Output 10/04/22 10/05/22 10/05/22 18:59 06:59 18:59 Intake Total 69.819 313.295 Output Total 1825 850 Balance -1755.181 -536.705 Weight 67.132 kg 65.6 kg Intake: Intake, IV Titration 69.819 133.295 Amount Heparin Sod,Pork in 0.45% 69.819 133.295 NaCl 25,000 unit In 0.45 % NaCl 1 250ml.bag @ 12 UNITS/KG/HR 8.056 mls/hr IV .Q24H [facility] Rx#: [id number] Oral 180 Output: Urine 1825 850 Other: Voiding Method Urinal Urinal # Voids 1 - Exam General: [non toxic], [no distress], [appears at stated age] Derm: [warm], [dry] Head: [atraumatic], [normocephalic], [symmetric] Eyes: [EOMI], [no lid lag], [anicteric sclera] Mouth: [no lip lesion], [mucus membranes moist] Cardiovascular: [S1S2 reg], [no murmur], [positive posterior tibial pulse bilateral], Lungs: [CTA bilateral], [no rhonchi, no rales] , [no accessory muscle use] Abdominal: [soft], [ nontender to palpation], [no guarding], [no appreciable organomegaly] Ext: [no gross muscle atrophy], [no edema], [no contractures] Neuro: [ CN II-XI grossly intact], [no focal neuro deficits] Psych: [Alert], [oriented], [appropriate affect] - Labs CBC & Chem 7: 10/05/22 07:22 10/05/22 07:22 Labs: Abnormal Lab Results - Last 24 Hours (Table) 10/04/22 10/04/22 10/04/22 Range/Units 16:16 19:02 22:35 RBC (4.30-5.90) m/uL Hgb (13.0-17.5) gm/dL Hct (39.0-53.0) % APTT 38.7 H (22.0-30.0) sec Glucose (74-99) mg/dL Troponin I 0.044 H* 0.041 H* (0.000-0.034) ng/mL 10/05/22 10/05/22 10/05/22 Range/Units 07:22 07:22 12:49 RBC 3.83 L (4.30-5.90) m/uL Hgb 11.6 L (13.0-17.5) gm/dL Hct 34.4 L (39.0-53.0) % APTT 35.6 H (22.0-30.0) sec Glucose 101 H (74-99) mg/dL Troponin I (0.000-0.034) ng/mL Assessment and Plan Assessment: -Shortness of breath likely due to NSTEMI IV Lasix transitioned to oral Lasix by cardiology Patient started on losartan 25 daily and Coreg 3.125 mg twice daily 2-D echocardiogram ordered Cardiology recommendations appreciated continue IV heparin -Hyperlipidemia Continue statin -Normocytic anemia improving Check iron studies -Admit to inpatient, expected length of stay >2 midnights Time with Patient: Greater than 30
[2022-10-05 16:11] LABS: % Iron Saturation 13.82 (15.00-50.00)
[2022-10-05] MEDS: ATORVASTATIN 10 MG TAB PO SCH (16:36)
[2022-10-05] MEDS: FUROSEMIDE 40 MG TAB PO SCH (16:36)
[2022-10-06] MEDS: carvediloL 3.125 MG TAB PO SCH ×2 (06:09→17:04)
[2022-10-06] MEDS: FUROSEMIDE 40 MG TAB PO SCH (09:03)
--- NOTE | 2022-10-06 09:47 | CA ---
Transthoracic Echo Report Name: Chase Olguin Age: 72 Gender: M : 1950 Exam Date: 10/05/2022 14:33 Exam Location: [facility] Ht (in): 62 Wt (lb): 144 Ordering Physician: Griselda Cole Attending/Referring Phys: [id number], Douglas Waxer Natacha Hair RDCS Procedure CPT: Indications: LVF Cardiac Hx: Technical Quality: Contrast 1: Total Dose (mL): Contrast 2: Total Dose (mL): MEASUREMENTS (Male / Female) Normal Values 2D ECHO LV Diastolic Diameter PLAX 7.0 cm 4.2 - 5.9 / 3.9 - 5.3 cm LV Systolic Diameter PLAX 5.3 cm IVS Diastolic Thickness 0.8 cm 0.6 - 1.0 / 0.6 - 0.9 cm LVPW Diastolic Thickness 1.2 cm 0.6 - 1.0 / 0.6 - 0.9 cm LV Relative Wall Thickness 0.3 RV Internal Dim ED PLAX 4.3 cm LA Systolic Diameter LX 4.5 cm 3.0 - 4.0 / 2.7 - 3.8 cm LV Diastolic Volume MOD BP 123.6 cm??? 67 - 155 / 56 - 104 cm??? LV Systolic Volume MOD BP 107.0 cm??? 22 - 58 / 19 - 49 cm??? LV Ejection Fraction MOD BP 13.5 % >= 55 % LV Diastolic Volume MOD 4C 83.8 cm??? LV Systolic Volume MOD 4C 93.3 cm??? LV Ejection Fraction MOD 4C -11.4 % LV Diastolic Length 4C 6.7 cm LV Systolic Length 4C 6.8 cm LV Diastolic Volume MOD 2C 153.4 cm??? LV Systolic Volume MOD 2C 117.7 cm??? LV Ejection Fraction MOD 2C 23.3 % LV Diastolic Length 2C 8.1 cm LV Systolic Length 2C 7.1 cm LA Volume 71.8 cm??? 18 - 58 / 22 - 52 cm??? M-MODE Aortic Root Diameter MM 3.2 cm LA Systolic Diameter MM 4.5 cm LA Ao Ratio MM 1.4 MV E Point Septal Separation 2.0 cm AV Cusp Separation MM 1.9 cm DOPPLER TR Peak Velocity 249.6 cm/s TR Peak Gradient 24.9 mmHg Right Ventricular Systolic Press 29.9 mmHg FINDINGS Left Ventricle Moderately increased left ventricular diastolic diameter. Severely increased left ventricular systolic volume. Severely decreased left ventricular ejection fraction. Right Ventricle Normal right ventricular size and function. Right ventricular systolic pressure within normal limits. Right Atrium Normal right atrial size. Left Atrium Mildly increased left atrial diameter. Moderately increased left atrial volume. Mildly increased left atrial area. Mitral Valve Structurally normal mitral valve. Aortic Valve Trileaflet aortic valve. Aortic valve sclerosis. Tricuspid Valve Structurally normal tricuspid valve. Mild tricuspid regurgitation. Pulmonic Valve Structurally normal pulmonic valve. Pericardium Normal pericardium. Aorta Normal size aortic root and proximal ascending aorta. CONCLUSIONS Left ventricular ejection fraction 20% Moderately dilated left ventricle RVSP 29 Mild to moderately dilated left atrium Mild tricuspid regurgitation No pericardial effusion Previewed by: Dr. Kimani Burris DO (Electronically Signed) Final Date: 06 October 2022 09:47
[2022-10-06] MEDS ORDERED: ATORVASTATIN 80 MG TAB PO STA (10:18)
[2022-10-06] MEDS ORDERED: ALPRAZolam 0.25 MG TAB PO PRN (10:18)
[2022-10-06] MEDS ORDERED: NITROGLYCERIN SL TABS 0.4 MG TAB SUBLINGUAL PRN (10:18)
[2022-10-06] MEDS ORDERED: ASPIRIN 325 MG TAB PO STA (10:18)
[2022-10-06] MEDS ORDERED: ALPRAZolam 0.5 MG TAB PO PRN (10:18)
[2022-10-06] MEDS ORDERED: VERAPAMIL 2.5 MG/ML 2 ML AMP ONE (10:36)
[2022-10-06 10:52] LABS: Calcium 8.9 mg/dL (8.4-10.2); Magnesium 1.8 mg/dL (1.6-2.3); Potassium 3.7 mmol/L (3.5-5.1)
[2022-10-06] MEDS ORDERED: fentaNYL (PF) 50 MCG/ML 2 ML AMP ONE (11:04)
[2022-10-06] MEDS ORDERED: SODIUM CHLORIDE 0.9% 500 ML 500 ML IV ONE (11:05)
[2022-10-06] MEDS ORDERED: fentaNYL (PF) 50 MCG/ML 2 ML AMP IV ONE (11:20)
[2022-10-06] MEDS ORDERED: MIDAZOLAM 2 MG/2 ML VIAL IV ONE (11:20)
[2022-10-06] MEDS ORDERED: LIDOCAINE 1% INJ 10MG/ML (5 ML VIAL-PF) SQ ONE (11:22)
[2022-10-06] MEDS ORDERED: VERAPAMIL SYRINGE (5 MG/10 ML) INTRAARTER ONE (11:24)
[2022-10-06] MEDS ORDERED: HEPARIN SODIUM 1,000 UN/ML (10ML VL) IV ONE (11:24)
[2022-10-06] MEDS ORDERED: IOPAMIDOL-370 125ML BTL INJ ONE (11:36)
--- NOTE | 2022-10-06 11:46 | P.CARDCATH ---
Description of Procedure: PROCEDURES PERFORMED: Left heart catheterization, bilateral coronary angiography INDICATION: Non-STEMI, cardiomyopathy CONSENT:I have discussed the risks, benefits and alternative therapies for the above-mentioned procedure and for both sedation/analgesia as well as necessary blood product administration, if indicated, as they pertain to this patient. The patient has indicated understanding and acceptance of the risks and procedures discussed. PROCEDURE: After the risks, benefits and alternatives of the above mentioned procedure explained in detail with the patient, informed consent was obtained. Patient was taken to the catheterization lab and prepped and draped in usual fashion. 1% lidocaine was used to anesthetize the right radial artery. A 6- Yi sheath was placed in the right radial artery using modified Seldinger technique. Left coronary angiography was performed with a 5-Yi JL 3.5 catheter and right coronary angiography was performed with a 6-Yi AR2 catheter in various views. A 5-Yi FR5 catheter was inserted into the left ventricle and pressure measurements were obtained. The right radial sheath was removed and a TR band was placed with hemostasis achieved. The patient tolerated the procedure well. Patient was transported back to the post catheterization holding area in stable condition. Conscious Sedation: Patient was monitored under the direct supervision of vision of myself for conscious sedation using Versed and fentanyl for a total duration of 18 minutes HEMODYNAMICS: Aorta: 118/72 LV: 112/3, LVEDP 8 SELECTIVE CORONARY ARTERIOGRAPHY: LEFT MAIN: The left main is a large caliber vessel which bifurcates into the LAD and circumflex. There is no significant stenosis. LEFT ANTERIOR DESCENDING CORONARY ARTERY: LAD is a large caliber vessel which wraps around to the apex. There is a long tubular proximal LAD 40-50% stenosis and otherwise mild luminal irregularities. LEFT CIRCUMFLEX CORONARY ARTERY: Left circumflex is a moderate caliber vessel with mild luminal irregularities RIGHT CORONARY ARTERY: The right coronary artery is a large caliber vessel which gives off a PDA and PLV branch and is the dominant vessel. There are mild luminal irregularities. FINAL IMPRESSION: 1. CAD as described above including proximal LAD 40-50% stenosis and otherwise mild luminal irregularities of the circumflex and RCA 2. Normal left sided filling pressures PLAN: 1. Aggressive risk factor modification per most recent ACC/AHA guidelines. 2. Continue heart failure regimen.
[2022-10-06] MEDS: LOSARTAN 25 MG TAB PO SCH (12:04)
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
--- NOTE | 2022-10-06 14:17 | P.PN ---
Subjective Progress Note Date: 10/06/22 Patient seen and examined at bedside. Patient denied chest pain or shortness of breath at time of exam. Patient continues to be on heparin drip. Patient was awaiting cardiac cath. Objective - Vital Signs Vital signs: Vital Signs Temp 97.9 F 10/05/22 19:38 Pulse 85 10/06/22 08:00 Resp 16 10/06/22 08:00 BP 125/77 10/06/22 08:00 Pulse Ox 98 10/06/22 08:00 FiO2 Intake & Output 10/05/22 10/06/22 10/06/22 18:59 06:59 18:59 Intake Total 493.295 48.556 100 Output Total 850 600 Balance -356.705 -551.444 100 Weight 63.9 kg Intake: IV 100 Intake, IV Titration 133.295 48.556 Amount Heparin Sod,Pork in 0.45% 133.295 48.556 NaCl 25,000 unit In 0.45 % NaCl 1 250ml.bag @ 12 UNITS/KG/HR 8.056 mls/hr IV .Q24H [facility] Rx#: [id number] Oral 360 Output: Urine 850 600 Other: Voiding Method Urinal Urinal Urinal - Exam General: [non toxic], [no distress], [appears at stated age] Derm: [warm], [dry] Head: [atraumatic], [normocephalic], [symmetric] Eyes: [EOMI], [no lid lag], [anicteric sclera] Mouth: [no lip lesion], [mucus membranes moist] Cardiovascular: [S1S2 reg], [no murmur], [positive posterior tibial pulse bilateral], Lungs: [CTA bilateral], [no rhonchi, no rales] , [no accessory muscle use] Abdominal: [soft], [ nontender to palpation], [no guarding], [no appreciable organomegaly] Ext: [no gross muscle atrophy], [no edema], [no contractures] Neuro: [ CN II-XI grossly intact], [no focal neuro deficits] Psych: [Alert], [oriented], [appropriate affect] - Labs CBC & Chem 7: 10/05/22 07:22 10/06/22 08:48 Labs: Abnormal Lab Results - Last 24 Hours (Table) 10/05/22 10/05/22 10/05/22 Range/Units 07:22 11:31 21:19 APTT 43.6 H (22.0-30.0) sec Glucose (74-99) mg/dL Hemoglobin A1c 6.3 H (0.0-6.0) % Iron 48 L (65-175) ug/dL % Saturation 13.82 L (15.00-50.00) 10/06/22 10/06/22 Range/Units 08:48 08:48 APTT 50.7 H (22.0-30.0) sec Glucose 110 H (74-99) mg/dL Hemoglobin A1c (0.0-6.0) % Iron (65-175) ug/dL % Saturation (15.00-50.00) Microbiology - Last 24 Hours (Table) 10/04/22 19:02 Blood Culture - Preliminary Blood No Growth after 24 hours 10/04/22 16:16 Blood Culture - Preliminary Blood No Growth after 24 hours Assessment and Plan Assessment: -NSTEMI Patient is status post cardiac cath. Impression: CAD as described with proximal LAD 40-50% stenosis and mild luminal irregularities of the circumflex and RCA. 2-D echocardiogram revealed ejection fraction of 20%. Moderately dilated left ventricle. Aggressive risk factor modification advised Continue heart failure regimen Continue oral Lasix Patient started on losartan 25 daily and Coreg 3.125 mg twice daily Cardiology recommendations -Shortness of breath due to systolic heart failure 2-D echocardiogram revealed ejection fraction of 20%. Moderately dilated left ventricle. Continue heart failure regimen -Hyperlipidemia Continue statin -Normocytic anemia improving Check iron studies -Admit to inpatient, expected length of stay >2 midnights Disposition: Home in a.m.
--- NOTE | 2022-10-06 14:58 | CDI ---
Documentation Clarification Form Date: 10/06/2022 2:04:16 PM From: Hellen Magallanes RN, CCDS Email: [email or web address] Admit Date: 10/04/2022 3:35:00 PM Patient Name: Chase Olguin Visit Number: [id number] Discharge Date: ATTENTION: The Clinical Documentation Specialists (CDI) and [facility] Coding Staff appreciate your assistance in clarifying documentation. Please respond to the clarification below the line at the bottom and electronically sign. The CDI & [facility] Coding staff will review the response and follow-up if needed. Please note: Queries are made part of the Legal Health Record. If you have any questions, please contact the author of this message via ITS. Dr. Taz Gr Your patient has the documented diagnosis of unspecified heart failure in your 10/05 Consult note. Additional information regarding the type and acuity of CHF is requested. History/Risk Factors: hyperlipidemia, osteoarthritis, depression. Patient came in due to SOB for 3 weeks. Complains of lower extremity edema. Clinical Indicators: 10/04 H&P: "Chest x-ray showed congestive heart failure changes with pulmonary vascular congestion and tiny pleural effusion." 10/05 Consult: "Dyspnea on exertion, suspect heart failure" 10/04 BNP: 6560 10/05 EF Echocardiogram 10/04 Chest X Ray: CHF with pulmonary vascular congestion. Trace pleural effusions with adjacent atelectasis and/or consolidation. Treatment: IV Lasix 40mg x1 on 10/04; IV Lasix 20mg on 10/05; Lasix 40mg po BID; Lasix 40mg po daily; Coreg 3.125mg po BID In your professional opinion, can you please clarify the acuity and type of CHF if known? [ x ] Acute Systolic Heart Failure (reduced EF) Acute systolic heart failure MTDD
[2022-10-06 16:13] LABS: Chol/HDL Ratio 3.33 Ratio; LDL Cholesterol,Calculated 88.6 mg/dL (0.0-131.0)
[2022-10-06] MEDS: ATORVASTATIN 10 MG TAB PO SCH (17:00)
[2022-10-06] MEDS: FERROUS SULFATE 325 MG TAB PO SCH (17:04)
[2022-10-07] MEDS: carvediloL 3.125 MG TAB PO SCH (05:59)
[2022-10-07] MEDS: FERROUS SULFATE 325 MG TAB PO SCH ×2 (05:59→16:33)
[2022-10-07] MEDS: ASPIRIN 81 MG PO SCH (08:59)
[2022-10-07] MEDS: FUROSEMIDE 40 MG TAB PO SCH (08:59)
[2022-10-07 09:02] LABS: Basophils % (A) 1 %; Eosinophils # (A) 0.6 k/uL (0-0.7); Eosinophils % (A) 6 %; HCT 36.3 % (39.0-53.0); HGB 11.9 gm/dL (13.0-17.5); Hypochromasia Slight; Lymphocytes % (A) 24 %; MCHC 32.8 g/dL (31.0-37.0); MCV 91.2 fL (80.0-100.0); Mean Platelet Volume 7.7; Monocytes # (A) 0.4 k/uL (0-1.0); Monocytes % (A) 5 %; Neutrophils # (A) 5.5 k/uL (1.3-7.7); Neutrophils % (A) 63 %; Platelet Count 365 k/uL (150-450); RBC 3.98 m/uL (4.30-5.90); RDW 13.5 % (11.5-15.5); WBC 8.7 k/uL (3.8-10.6)
[2022-10-07 09:33] LABS: Albumin 3.8 g/dL (3.5-5.0); Calcium 8.5 mg/dL (8.4-10.2); Magnesium 1.9 mg/dL (1.6-2.3); Total Bilirubin 0.5 mg/dL (0.2-1.3); Total Protein 6.6 g/dL (6.3-8.2)
[2022-10-07] MEDS ORDERED: carvediloL 3.125 MG TAB PO STA (10:44)
[2022-10-07] MEDS: LOSARTAN 25 MG TAB PO SCH (13:02)
[2022-10-07 13:03] LABS: Parvovirus B-19 IgG Antibodies 3.43 INDEX (<=0.90); Parvovirus B-19 IgM Antibodies 0.09 INDEX (<=0.90)
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
--- NOTE | 2022-10-07 15:31 | P.PN ---
Subjective Patient seen and examined at bedside. Family in the room at time of interview. Patient is very eager to go home. However medications need to be adjusted by cardiology. Discharge planning held until tomorrow morning. Patient denies chest pain shortness of breath. Patient feels much better. Objective - Vital Signs Vital signs: Vital Signs Temp 97.9 F 10/07/22 11:15 Pulse 94 10/07/22 11:15 Resp 16 10/07/22 11:15 BP 110/76 10/07/22 11:15 Pulse Ox 96 10/07/22 11:15 FiO2 Intake & Output 10/06/22 10/07/22 10/07/22 18:59 06:59 18:59 Intake Total 280 240 688 Output Total 500 Balance 280 -260 688 Intake: IV 100 Oral 180 240 688 Output: Urine 500 Other: Voiding Method Urinal Urinal Urinal # Voids 1 - Exam General: [non toxic], [no distress], [appears at stated age] Derm: [warm], [dry] Head: [atraumatic], [normocephalic], [symmetric] Eyes: [EOMI], [no lid lag], [anicteric sclera] Mouth: [no lip lesion], [mucus membranes moist] Cardiovascular: [S1S2 reg], [no murmur], [positive posterior tibial pulse bilateral], Lungs: [CTA bilateral], [no rhonchi, no rales] , [no accessory muscle use] Abdominal: [soft], [ nontender to palpation], [no guarding], [no appreciable organomegaly] Ext: [no gross muscle atrophy], [no edema], [no contractures] Neuro: [ CN II-XI grossly intact], [no focal neuro deficits] Psych: [Alert], [oriented], [appropriate affect]. - Labs CBC & Chem 7: 10/07/22 08:16 10/07/22 08:16 Labs: Abnormal Lab Results - Last 24 Hours (Table) 10/05/22 10/07/22 10/07/22 Range/Units 11:31 08:16 08:16 RBC 3.98 L (4.30-5.90) m/uL Hgb 11.9 L (13.0-17.5) gm/dL Hct 36.3 L (39.0-53.0) % BUN 21 H (9-20) mg/dL Glucose 164 H (74-99) mg/dL AST 63 H (17-59) U/L ALT 50 H (4-49) U/L Parvovirus B19 IgG Ab 3.43 H (<=0.90) INDEX Microbiology - Last 24 Hours (Table) 10/04/22 19:02 Blood Culture - Preliminary Blood No Growth after 48 hours 10/04/22 16:16 Blood Culture - Preliminary Blood No Growth after 48 hours Assessment and Plan Assessment: -NSTEMI Patient is status post cardiac cath. on 10/06/2022 Impression: CAD as described with proximal LAD 40-50% stenosis and mild luminal irregularities of the circumflex and RCA. 2-D echocardiogram revealed ejection fraction of 20%. Moderately dilated left ventricle. Aggressive risk factor modification advised Continue heart failure regimen Continue oral Lasix Patient started on losartan and Coreg Cardiology recommendations -Shortness of breath due to systolic heart failure 2-D echocardiogram revealed ejection fraction of 20%. Moderately dilated left ventricle. Continue heart failure regimen -Hyperlipidemia Continue statin -Normocytic anemia improving Check iron studies -Admit to inpatient, expected length of stay >2 midnights Disposition: Home in a.m. due to medication adjustments
[2022-10-07] MEDS: ATORVASTATIN 10 MG TAB PO SCH (16:33)
[2022-10-07] MEDS: carvediloL 6.25 MG TAB PO SCH (16:33)
[2022-10-08 04:46] VITALS: RESP 16
[2022-10-08] MEDS: FERROUS SULFATE 325 MG TAB PO SCH (06:15)
[2022-10-08] MEDS: carvediloL 6.25 MG TAB PO SCH (06:15)
[2022-10-08] MEDS: FUROSEMIDE 40 MG TAB PO SCH (08:01)
[2022-10-08] MEDS: ASPIRIN 81 MG PO SCH (08:01)
[2022-10-08 11:22] VITALS: BP 119/74; PULSE 86; TEMP 97.8
[2022-10-08] MEDS: LOSARTAN 25 MG TAB PO SCH (12:00)
--- NOTE | 2022-10-08 13:47 | P.DS ---
Providers Date of admission: 10/04/22 15:35 Expected date of discharge: 10/08/22 Attending physician: Migue Polanco MD Consults: 10/04/22 15:35 Consult Physician Routine Consulting Provider: Yoni Vickers Consult Reason/Comments: mi Do you want consulting provider notified?: Yes Primary care physician: [facility] Course: Admitting diagnoses: Chest pain Shortness of breath Discharge diagnoses: NSTEMI Systolic heart failure Hyperlipidemia Hypertension Normocytic anemia Hospital course: 72-year-old male presents emergency Department chief complaint of shortness of breath over the last 2 weeks. Other family members had similar symptoms. He has been having progressively worsening exertional shortness of breath, cannot walk long distances without getting short winded. Denied exertional chest pain. However has been having a cough productive of yellow phlegm with associated pleuritic chest pain. He states that he cannot lay flat at nighttime due to difficulty in breathing. Patient states that he's had no prior lung or heart disease. He is usually very active. No leg swelling. Patient denies any recent fever or chills. Patient states she's had no palpitations or dizziness. Patient denies any abdominal pain patient's nausea vomiting. Of note he smokes marijuana regularly but no cigarettes. Evaluation in the emergency department revealed normal vital signs. Labs were significant for hemoglobin 9.8, troponin 0.041, BNP 6560. Specific labs okay. Chest x-ray showed congestive heart failure changes with pulmonary vascular congestion and tiny pleural effusion. Patient was admitted for further evaluation and management. Physical General:[no distress], [appears at stated age] Derm: [warm], [dry] Head: [atraumatic], [normocephalic], [symmetric] Eyes: [EOMI], [no lid lag], [anicteric sclera] Mouth: [no lip lesion], [mucus membranes moist] Cardiovascular: [S1S2 reg], [no murmur], [positive posterior tibial pulse bilateral], Lungs: [CTA bilateral], [no rhonchi, no rales] , [no accessory muscle use] Abdominal: [soft], [ nontender to palpation], [no guarding], [no appreciable organomegaly] Ext: [no gross muscle atrophy], [no edema], [no contractures] Neuro: [ CN II-XI grossly intact], [no focal neuro deficits] Psych: [Alert], [oriented], [appropriate affect] Assessment and plan -NSTEMI Patient is status post cardiac cath. on 10/06/2022 Impression: CAD as described with proximal LAD 40-50% stenosis and mild luminal irregularities of the circumflex and RCA. 2-D echocardiogram revealed ejection fraction of 20%. Moderately dilated left ventricle. Aggressive risk factor modification advised Continue heart failure regimen Continue oral Lasix Patient started on losartan and Coreg Cardiology followed -Shortness of breath due to systolic heart failure 2-D echocardiogram revealed ejection fraction of 20%. Moderately dilated left ventricle. Continue heart failure regimen -Hyperlipidemia Continue statin -Normocytic anemia improving Check iron studies Disposition: Home Activity: As tolerated Diet: Healthy heart Condition: Fair Follow-up with PCP in 2-7 days Follow-up with cardiology in 1-2 weeks Patient Condition at Discharge: Fair Plan - Discharge Summary Discharge Rx Participant: Yes New Discharge Prescriptions: New Ferrous Sulfate [Iron (65 MG Elemental)] 325 mg PO BID-W/MEALS #60 tab Furosemide [Lasix] 20 mg PO DAILY #30 tab Atorvastatin [Lipitor] 20 mg PO HS #30 tablet Aspirin 81 mg PO DAILY #30 tab carvediloL [Coreg] 6.25 mg PO BID-W/MEALS #60 tab Losartan [Cozaar] 25 mg PO 1300 #30 tab Continue Venlafaxine HCl [Effexor XR] 150 mg PO HS Acetaminophen [Tylenol Arthritis] 650 mg PO DAILY traMADol HCl [Ultram] 50 mg PO QID Multivit-Min/Folic/Vit K/Lycop [Men's Multivitamin Tablet] 1 tab PO DAILY Discontinued Simvastatin [Zocor] 20 mg PO HS Discharge Medication List Venlafaxine HCl [Effexor XR] 150 mg PO HS 05/27/20 [History] Acetaminophen [Tylenol Arthritis] 650 mg PO DAILY 05/22/21 [History] Multivit-Min/Folic/Vit K/Lycop [Men's Multivitamin Tablet] 1 tab PO DAILY 05/22/21 [History] traMADol HCl [Ultram] 50 mg PO QID 05/22/21 [History] Aspirin 81 mg PO DAILY #30 tab 10/07/22 [Rx] Ferrous Sulfate [Iron (65 MG Elemental)] 325 mg PO BID-W/MEALS #60 tab 10/07/22 [Rx] Losartan [Cozaar] 25 mg PO 1300 #30 tab 10/07/22 [Rx] carvediloL [Coreg] 6.25 mg PO BID-W/MEALS #60 tab 10/07/22 [Rx] Atorvastatin [Lipitor] 20 mg PO HS #30 tablet 10/08/22 [Rx] Furosemide [Lasix] 20 mg PO DAILY #30 tab 10/08/22 [Rx] Follow up Appointment(s)/Referral(s): Taz Gr MD [STAFF PHYSICIAN] - 1 Week Ivon Carlton MD [Primary Care Provider] - 1-2 days Patient Instructions/Handouts: Heart Failure (ER) Discharge Disposition: HOME SELF-CARE
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
[2022-10-09] MEDS ORDERED: FUROSEMIDE 20 MG TAB PO SCH (09:00)
== END 2022-10-08 14:39 | disposition home or self-care (01) | DRG 280 ==
LOC: EC 12:06 → 3SCARD 15:35
PROVIDERS: ADMIT Internal Medicine; ATTEND Internal Medicine
PROC: B2111ZZ Fluoroscopy of Multiple Coronary Arteries using Low Osmolar Contrast (ICD-10-PCS; principal; 2022-10-06 09:00)
PROC: B2151ZZ Fluoroscopy of Left Heart using Low Osmolar Contrast (ICD-10-PCS; principal; 2022-10-06 09:00)
PROC: 4A023N7 Measurement of Cardiac Sampling and Pressure, Left Heart, Percutaneous Approach (ICD-10-PCS; principal; 2022-10-06 09:00)
DX: I21.4 Non-ST elevation (NSTEMI) myocardial infarction (principal); I50.21 Acute systolic (congestive) heart failure; I42.8 Other cardiomyopathies; I45.10 Unspecified right bundle-branch block; I11.0 Hypertensive heart disease with heart failure; B33.24 Viral cardiomyopathy; Z20.822 Contact with and (suspected) exposure to COVID-19; I25.10 Atherosclerotic heart disease of native coronary artery without angina pectoris; F32.A Depression, unspecified; D64.9 Anemia, unspecified; F41.9 Anxiety disorder, unspecified; I07.1 Rheumatic tricuspid insufficiency; E78.00 Pure hypercholesterolemia, unspecified; M54.2 Cervicalgia; M19.90 Unspecified osteoarthritis, unspecified site; Z87.891 Personal history of nicotine dependence; Z79.899 Other long term (current) drug therapy; Z86.14 Personal history of Methicillin resistant Staphylococcus aureus infection; Z98.1 Arthrodesis status; Z82.49 Family history of ischemic heart disease and other diseases of the circulatory system
CPT/HCPCS: 36415; 71046; 80048; 80053; 80061; 82550; 82607; 82746; 83036; 83540; 83550; 83605; 83735; 83880; 84100; 84145; 84443; 84484; 85025; 85610; 85730; 86658; 86747; 87040; 87636; 93005; 93306; 93458; 96365; 96366; 96375; 99291

== ENCOUNTER → 2023-01-17 | Outpatient (CLI) | payer MEDICARE | END | disposition home or self-care (01) | LOC: LABWHC1 08:17 | PROVIDERS: ATTEND Internal Medicine Clinical Cardiac Electrophysiology | DX: I51.4 Myocarditis, unspecified (principal) | CPT/HCPCS: 36415; 86658 ==

== ENCOUNTER → 2023-01-27 | Outpatient (CLI) | payer MEDICARE ==
[2023-01-27 20:30] LABS: African American GFR (CKD) 62.5 (60.0-200.0); BUN/Creat Ratio 22.27 Ratio (12.00-20.00); Blood Urea Nitrogen 29.4 mg/dL (9.0-27.0); Calcium 9.8 mg/dL (8.7-10.3); Carbon Dioxide 26.3 mmol/L (20.0-27.5); Magnesium 2.2 mg/dL (1.5-2.4); Non-African American GFR(CKD) 53.9 (60.0-200.0); Potassium 5.5 mmol/L (3.5-5.5)
== END | disposition home or self-care (01) ==
LOC: LABWHC1 10:12
PROVIDERS: ATTEND Internal Medicine Clinical Cardiac Electrophysiology
DX: I25.10 Atherosclerotic heart disease of native coronary artery without angina pectoris (principal)
CPT/HCPCS: 36415; 80048; 83735

== ENCOUNTER → 2023-06-07 | Outpatient (CLI) | payer MEDICARE | END | disposition home or self-care (01) | LOC: LABPAT 15:13 | PROVIDERS: ATTEND Internal Medicine Clinical Cardiac Electrophysiology | DX: Z53.9 Procedure and treatment not carried out, unspecified reason (principal) ==

== ENCOUNTER 2023-06-14 14:59 | Day surgery (SDC) | payer MEDICARE, OTHER ==
[2023-06-13 09:27] VITALS: BMI 26.5
[~2023-06-14 14:59] MED LIST changes: -LACTATED RINGERS 1,000 ML IV SCH; +SODIUM CHLORIDE 0.9% 1,000 ML IV SCH; +ceFAZolin 1 GM in SODIUM CHLORIDE 0.9% IRRIG BTL 250 ML IRRIGATION PRN
[2023-06-14] MEDS ORDERED: LIDOCAINE 1% INJ 10MG/ML (20 ML MDV) ONE ×2 (17:02→17:51)
[2023-06-14] MEDS ORDERED: IOPAMIDOL-370 100ML BTL INJ ONE (17:24)
[2023-06-14] MEDS ORDERED: LIDOCAINE 1% INJ 10MG/ML (20 ML MDV) SQ ONE ×3 (17:43→18:05)
[2023-06-14] MEDS ORDERED: HYDROcodone/APAP 5-325MG 1 EACH TAB PO PRN (18:33)
[2023-06-14] MEDS ORDERED: ACETAMINOPHEN IV (For NPO) 1,000 MG in EMPTY BAG 1 BAG IVPB ONE (18:33)
[2023-06-14] MEDS ORDERED: ACETAMINOPHEN TAB 325 MG TAB PO PRN (18:33)
--- NOTE | 2023-06-14 18:42 | P.EPPROC ---
- EP Procedure Note Electrophysiology Procedure Note: Diagnosis Cardiomyopathy, chronic, nonischemic Congestive heart failure, systolic, class III On guideline directed medical treatment guideline directed No improvement in LV systolic function over the last 7 months. Severe LV dysfunction Right bundle branch block pattern twelve-lead EKG Procedure: Single ICD implantation for management of risk of sudden cardiac Keyboarding Clerk: Dr. Gr Result: Single chamber ICD implantation, RV ICD lead: [employer] Pacing threshold 0.5 V at 0.5 ms. R waves 10.6 mV. Pacing impedance 960 ohms High-voltage impedance 72 ohms ICD generator: [place] [employer], [employer] Procedure details: Patient was brought to the EP lab in a fasting state. Written informed consent was obtained prior to the procedure. Options, pros and cons, benefits and risks and complications discussed with patient in detail prior to the procedure (shared decision making document, from [facility]). Importance of continuing medical treatment emphasized. Alternatives discussed. Patient would like to proceed with ICD implant. Left upper extremity venogram performed. 15 mL IV dye injected in the left arm. Patent axillary/subclavian vein The left pectoral area was prepped and draped as a protocol. IV antibiotics administered 1% lidocaine was used for local anesthesia. A 4 cm incision was made parallel to the deltopectoral groove, about 1.5 cm medial to it. The incision was carried down to the level of the pectoralis muscle and the subfascial pocket was made. Hemostasis was assured. The axillary vein access was obtained. Appropriately sized venous sheath was placed. ICD lead implanted in the right ventricle and screwed in. ICD lead tested for threshold, sensing, impedances and tested with high output pacing for diaphragmatic stimulation Lead secured to the underlying transverse muscle after removing sheaths . Pocket irrigated with antibiotic solution Leads connected to the ICD generator. Wound closed in 3 layers and dressed per protocol ICD was interrogated and programmed. Appropriate pacing parameters, antitachycardia therapies with antitachycardia pacing cardioversion defibrillations programmed. Patient tolerated the procedure well without any acute complications. See scanned device report in EMR for lead details Defibrillation level testing Ventricular atrial fibrillation was induced and detected at least sensitivity. No dropouts Charge time 1.9 seconds Shocking impedance 72 ohms Successful defibrillation with 10 J shock, anodal polarity
--- NOTE | 2023-06-14 18:44 | P.PRLE ---
RE: Chase Olguin Dear Ivonceleste Stone underwent a single-chamber ICD implantation for primary prevention of sudden cardiac He has predominantly nonischemic cardio myopathy with severe LV dysfunction He will continue his cardiac medications and will follow-up with you as previously scheduled We will see him again next week in the device clinic Thank you for entrusting me with the care of the patient Warm regards Sincerely Taz Gr
[2023-06-14] MEDS ORDERED: ATORVASTATIN 20 MG TAB PO SCH (21:00)
[2023-06-14] MEDS ORDERED: VENLAFAXINE HCL ER 150 MG CAP PO SCH (21:00)
[2023-06-14 21:07] VITALS: RESP 16
[2023-06-14] MEDS: traMADol 50 MG TAB PO SCH (22:23)
[2023-06-15] MEDS ORDERED: carvediloL 6.25 MG TAB PO SCH (07:30)
--- NOTE | 2023-06-15 07:35 | XR ---
EXAMINATION TYPE: XR chest 2V DATE OF EXAM: 06/15/2023 COMPARISON: 10/04/2022 INDICATION: Lead placement check TECHNIQUE: Frontal and lateral views of the chest are obtained. FINDINGS: The heart size is normal. Pacemaker overlies the left chest. Single lead directed into the region of the ventricle. The pulmonary vasculature is normal. The lungs are clear. IMPRESSION: 1. No acute pulmonary process. 2. No pneumothorax post left pacemaker placement, single lead directed towards the ventricular region .
[2023-06-15] MEDS ORDERED: FUROSEMIDE 20 MG TAB PO SCH (09:00)
[2023-06-15] MEDS ORDERED: ASPIRIN 81 MG PO SCH (09:00)
[2023-06-15 09:17] VITALS: BP 123/79; PULSE 86; TEMP 98
[2023-06-15] MEDS: traMADol 50 MG TAB PO SCH (10:38)
[2023-06-15] MEDS ORDERED: LOSARTAN 25 MG TAB PO SCH (13:00)
== END 2023-06-15 11:10 | disposition home or self-care (01) ==
LOC: CATHEP 14:59 → 6NMEDSUR 18:27 → CATHEP 06-15 11:10
PROVIDERS: ATTEND Internal Medicine Clinical Cardiac Electrophysiology
DX: I50.22 Chronic systolic (congestive) heart failure (principal); I45.10 Unspecified right bundle-branch block; I25.10 Atherosclerotic heart disease of native coronary artery without angina pectoris; B33.24 Viral cardiomyopathy; F12.90 Cannabis use, unspecified, uncomplicated; Z79.82 Long term (current) use of aspirin; Z79.899 Other long term (current) drug therapy
CPT/HCPCS: 33249; 71046; C1722; C1892; C1769 ×2; C1777; J0690 ×2; J2001; Q9967

== ENCOUNTER 2025-03-15 10:54 | Day surgery (SDC) | payer MEDICARE ==
[~2025-03-15 10:54] MED LIST changes: +LIDOCAINE 1% (10MG/ML) FOR IV START INTRADERMA PRN; -SODIUM CHLORIDE 0.9% 1,000 ML IV SCH; -ceFAZolin 1 GM in SODIUM CHLORIDE 0.9% IRRIG BTL 250 ML IRRIGATION PRN
[2025-03-15 12:11] VITALS: RESP 16; TEMP 96.9
[2025-03-15] MEDS: IV FLUID CONTINUATION 1,000 ML IV ONE (12:11)
[2025-03-15] MEDS: LACTATED RINGERS 1,000 ML IV SCH (12:11)
[2025-03-15] MEDS ORDERED: PHENYLEPHRINE-0.9% NACL SYG 1,000 MCG/10 ML SYRINGE ONE (12:53)
[2025-03-15] MEDS ORDERED: PROPOFOL 10 MG/ML 20 ML VIAL IV ONE (12:53)
--- NOTE | 2025-03-15 13:08 | P.PCN ---
Date of Procedure: 03/15/25 Procedure(s) Performed: BRIEF HISTORY: Patient is a 74-year-old pleasant white male scheduled for an elective colonoscopy as a part of screening for by history of colon polyps. Last colonoscopy was 4 years ago and was noted to have a tubular adenoma. PROCEDURE PERFORMED: Colonoscopy. PREOPERATIVE DIAGNOSIS: Screening for history of colon polyps. IV sedation per Anesthesia. PROCEDURE: After informed consent was obtained, the patient, was brought into the endoscopy unit. IV sedation was administered by Anesthesia under continuous monitoring. Digital rectal examination was normal. Initially the Olympus CF-160 flexible video colonoscope was then inserted in the rectum, gradually advanced into the cecum without any difficulty. Careful examination was performed as the scope was gradually being withdrawn. Ileocecal valve and the appendiceal orifice were visualized and appeared normal. Prep was excellent. Mucosa of the cecum, ascending colon, transverse colon, descending colon, sigmoid colon, and rectum appeared normal. Retroflexion was performed in the rectum and grade 2 internal hemorrhoids. Were seen. The patient tolerated the procedure well. IMPRESSION: Normal-appearing colon from rectum to cecum with no evidence of colorectal neoplasia. Grade 2 internal hemorrhoids. RECOMMENDATIONS: Findings of this examination were discussed with the patient as well as his family. He was advised to have repeat colonoscopy at age 81 .
[2025-03-15 13:44] VITALS: BP 114/77; PULSE 78
== END 2025-03-15 14:04 | disposition home or self-care (01) ==
LOC: ORWHC2ENDO 10:54
PROVIDERS: ATTEND Internal Medicine Gastroenterology
DX: Z12.11 Encounter for screening for malignant neoplasm of colon (principal); K64.1 Second degree hemorrhoids; Z86.0101 Personal history of adenomatous and serrated colon polyps; E78.5 Hyperlipidemia, unspecified; I50.9 Heart failure, unspecified; I42.9 Cardiomyopathy, unspecified; Z79.899 Other long term (current) drug therapy; Z87.891 Personal history of nicotine dependence; Z95.810 Presence of automatic (implantable) cardiac defibrillator
CPT/HCPCS: J2704; J2371; G0105